=== PATIENT | male | born 1970 | race Two or more races ===

== ENCOUNTER 2017-12-11 06:14 | Day surgery (SDC) | payer OTHER ==
[2017-12-11] VITALS (14 sets, daily range): BP systolic 95–222; BP diastolic 56–105
[~2017-12-11] VITALS: Ht 177.8 cm; Wt 104.3 kg
[~2017-12-11 06:14] MED LIST: ALBUTEROL SULF8.5 GM INH; ATORVASTATIN CA40 MG ORAL; HYDROCHLOROTH12.5 M2 ORAL; LEVOTHYROXINE75 MCG ORAL; TENORMIN50 MG ORAL
[2017-12-11] MEDS ORDERED: ceFAZolin sod 1 GM in NS 55 ML IVPB ONE (07:00)
[2017-12-11] MEDS ORDERED: Morphine Sulfate 10mg/ml Inj ONE (07:09)
[2017-12-11] MEDS ORDERED: fentaNYL 100 mcg/2 mL IV ONE (07:09)
[2017-12-11] MEDS ORDERED: Midazolam 2mg/2ml Inj ONE ×2 (07:09→10:28)
[2017-12-11] MEDS ORDERED: Ketorolac 30mg Inj ONE (07:10)
[2017-12-11] MEDS ORDERED: Lidocaine 1% MPF 10mg/ml 5ml ONE (07:10)
[2017-12-11] MEDS ORDERED: Propofol 200mg/20ml IV ONE (07:10)
[2017-12-11] MEDS ORDERED: Succinylcholine 20mg/ml 10ml vial ONE (07:12)
[2017-12-11] MEDS ORDERED: cefOXitin 2gm Inj ONE (07:12)
[2017-12-11] MEDS ORDERED: Zemuron 50mg/5ml Inj IV ONE (07:12)
[2017-12-11] MEDS ORDERED: Bupivacaine 0.5% Inj 30 ml vial INJ ONE (07:29)
[2017-12-11] MEDS ORDERED: LR 1000ml ONE (07:45)
--- NOTE | 2017-12-11 07:55 | Anethesia Preoperative Eval ---
Anesthesia Pre-op PMH/ROS General Date of Evaluation: Dec 11, 2017 Time of Evaluation: 07:51 Anesthesiologist: Rossana ASA Score: ASA 2 Mallampati Score Class I : Soft palate, uvula, fauces, pillars visible Class II: Soft palate, uvula, fauces visible Class III: Soft palate, base of uvula visible Class IV: Only hard plate visible Mallampati Classification: Class III Surgeon: Keaton Diagnosis: Varicocele Surgical Procedure: Laparoscopic varicocelectomy Anesthesia History: none Social History: current smoker Family History: no anesthesia problems Allergies: Uncoded Allergies: cats (Allergy, Severe, 12/11/17) ITCHY EYES,HARD TIME BREATHING Medications: see eMAR Past Medical History Cardiovascular: Reports: HTN; Denies: CAD, [place], valve dz, arrhythmia, other Pulmonary: Reports: asthma, FAUZIA; Denies: COPD, other Gastrointestinal/Genitourinary: Reports: GERD; Denies: CRI, ESRD, other Neurologic/Psychiatric: Denies: dementia, CVA, depression/anxiety, TIA, other Endocrine: Reports: DM - borderline, hypothyroidism; Denies: steroids, other HEENT: Denies: cataract (L), cataract (R), glaucoma, LYTTON (L), LYTTON (R), other Hematology/Immune: Denies: anemia, DVT, bleeding disorder, other Musculoskeletal/Integumentary: Denies: OA, RA, DJD, DDD, edema, other Other: obesity PMH Narrative: as above PSxH Narrative: Dental Anesthesia Pre-op Phys. Exam Physician Exam Last Vital Signs Date Time Temp Pulse Resp B/P (MAP) Pulse Ox O2 Delivery O2 Flow Rate FiO2 12/11/17 07:04 97.7 66 20 142/85 (104) 98 97.7 12/11/17 06:51 Room Air Constitutional: NAD Cardiovascular: RRR, no M/R/G Respiratory: CTA Gastrointestinal: S/NT/ND Airway Exam Mallampati Score: Class III MO: limited Neck: short ROM: full Teeth: intact Dentures: no upper, no lower Anesthesia Pre-op A/P Labs see chart Studies Pre-op Studies: EKG - NSR Risk Assessment & Plan Assessment: ASA 2 Plan: GA with ETT PONV prevention Status Change Before Surgery: No Pre-Antibiotics Drug: Cefoxitin 2gr Given Within 1 Hr of Incision: Yes Time Given: 08:10 Torin Tracy MD Dec 11, 2017 07:55
--- NOTE | 2017-12-11 08:20 | Pre-Procedure Note/Attestation ---
Pre-Procedure Note/Attestation Complete Prior to Procedure Planned Procedure: bilateral Procedure Narrative: Laparascopic varicocelectomy Indications for Procedure Pre-Operative Diagnosis: varicocele Attestation I attest that I discussed the nature of the procedure; its benefits; risks and complications; and alternatives (and the risks and benefits of such alternatives ), prior to the procedure, with the patient (or the patient's legal major account representative). I attest that, if there was a reasonable possibility of needing a blood transfusion, the patient (or the patient's legal major account representative) was given the [facility] standardized written summary, pursuant to the [place] Blood Safety Act ([place] Health and Safety Code # 1645, as amended). I attest that I re-evaluated the patient just prior to the surgery and that there has been no change in the patient's H&P, except as documented below: Fahad Pugh MD Dec 11, 2017 08:20
[2017-12-11] MEDS ORDERED: LR 1000ml 1,000 ML IVLG SCH (08:42)
[2017-12-11] MEDS ORDERED: fentaNYL 100 mcg/2 mL IV PRN (08:45)
[2017-12-11] MEDS ORDERED: Ketorolac 30mg Inj IV PRN (08:45)
[2017-12-11] MEDS ORDERED: Meperidine 50mg/ml Inj(FOR RIGORS ONLY) IV PRN (08:45)
[2017-12-11] MEDS ORDERED: Metoclopramide 10mg/2ml Inj IVP PRN (08:45)
[2017-12-11] MEDS ORDERED: DiphenhydrAMINE 50mg/ml Inj IVP PRN (08:45)
[2017-12-11] MEDS ORDERED: HYDROmorphone 1mg/ml Carpuject SUBQ PRN (09:00)
[2017-12-11] MEDS ORDERED: Tylenol #3 tab (300mg/30mg) ORAL PRN (09:00)
[2017-12-11] MEDS ORDERED: Norco 5mg/325mg tab ORAL PRN (09:00)
[2017-12-11] MEDS ORDERED: D5 1/2NS 1,000 ML IV SCH (09:00)
--- NOTE | 2017-12-11 09:00 | Brief Operative Note ---
Immediate Post Operative Note Operative Note Pre-op Diagnosis: varicocele Procedure: bilateral laparoscopic varicocelectomy Post-op Diagnosis: same Post-op Diagnosis: same as pre-op Surgeon: prieto pugh Anesthesia: general Specimen: none Complications: none Condition: stable Fluids: 500 Estimated Blood Loss: minimal Implant(s) used?: No Fahad Pugh MD Dec 11, 2017 09:00
[2017-12-11] MEDS ORDERED: Labetalol 5mg/ml 20ml vial IV SCH (09:49)
[2017-12-11] MEDS ORDERED: Midazolam 2mg/2ml Inj IVP ONE (11:00)
--- NOTE | 2017-12-11 11:49 | Immediate Post-Op Evaluation ---
Immediate Post-Op Evalulation Immediate Post-Op Evalulation Procedure: Bilateral laparoscopic varicocelectomy Date of Evaluation: Dec 11, 2017 Time of Evaluation: 09:50 IV Fluids: 1200 Blood Products: none Estimated Blood Loss: min Urinary Output: none Blood Pressure Systolic: 156 Blood Pressure Diastolic: 84 Pulse Rate: 74 Respiratory Rate: 10 O2 Sat by Pulse Oximetry: 98 Temperature (Fahrenheit): 97.6 Pain Score (1-10): 1 Nausea: No Vomiting: No Complications Patient was intubated for surgery using 5mg of Rocuronium as antifasciculating dose and 100mg of Succinylcholine, nerve stimulator was used to monitor relaxation but no twitches were noticed up to the end of surgical procedure, so no more muscle relaxant were given, 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 Inhalational agent turned off, respiratory support continuing, patient transferred to PACU in stable condition and placed on ventilator on pressure support of 10. We will monitor and extubate when patient condition will aloud us to do that. Patient Status: reacts, ventilated, none Hydration Status: adequate Torin Tracy MD Dec 11, 2017 11:49
[2017-12-12 09:14] VITALS: BP 116/74
--- NOTE | 2017-12-12 09:14 | 48 Hour Post Anesthesia Eval ---
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 Post-Anesthesia Complications: As mentioned above. Follow-up care needed: ready to discharge Torin Tracy MD Dec 12, 2017 09:14
--- NOTE | 2017-12-13 23:30 | Operative Note - Dictated ---
DATE OF OPERATION: 12/11/2017 PREOPERATIVE DIAGNOSIS: Bilateral varicoceles. POSTOPERATIVE DIAGNOSIS: Bilateral varicoceles. OPERATION: Laparoscopic varicocelectomy. OPERATED BY: Fahad Pugh M.D. ANESTHESIA: General. FINDINGS: Enlarged gonadal veins. INDICATIONS FOR SURGERY: The patient had bilateral testicular atrophy, intermittent abdominal pain and scrotal pain. Varicocele was diagnosed by ultrasound. The patient understands the nature of the procedure and signed consent for bilateral laparoscopic varicocelectomy. He understands all potential complications. DESCRIPTION OF SURGERY: He was brought to the operating room, placed in supine position, prepped and draped in standard fashion under general anesthesia. Veress needle was placed in the umbilicus and three 5 mm trocars were placed in standard position. Using the laparoscope, exploratory laparoscopy was performed. There were some adhesions of the sigmoid colon, this was dissected free with Endo Sharlene. After that, the gonadal vein on the left side was mobilized. There were actually two large gonadal veins that was clipped and severed with hemoclips. The superior artery was carefully preserved. Vas deferens was also carefully preserved. After that, dissection was carried on the right side of the vein and mobilized two gonadal veins on the right. and artery was preserved. No evidence of bleeding, 25 ml aspirated. The wound was closed, subcuticular layer with 4-0 Monocryl and the balloon was deflated. All the trocars were removed. Sponge count and instrument count was correct. Fahad Pugh M.D. DR: Jessica JOB#: [id number] CC:
== END 2017-12-11 13:05 | disposition home or self-care (01) ==
LOC: SUR 06:14
DX: I86.1 Scrotal varices (principal); J45.909 Unspecified asthma, uncomplicated; E06.3 Autoimmune thyroiditis; E78.5 Hyperlipidemia, unspecified; I10 Essential (primary) hypertension; E03.9 Hypothyroidism, unspecified; G47.33 Obstructive sleep apnea (adult) (pediatric); E66.9 Obesity, unspecified; Z68.30 Body mass index [BMI] 30.0-30.9, adult; F17.210 Nicotine dependence, cigarettes, uncomplicated; R73.03 Prediabetes
CPT/HCPCS: 55550; J0330; J0694; J1885; J2250; J2270; J2405; J2704; J3010; J3490; J7120; 94003; 94150